=== PATIENT | female | born 1965 | race Caucasian/White ===

== ENCOUNTER 2017-04-25 21:52 | Emergency (ER) | payer BC ==
[~2017-04-25] VITALS: Ht 167.6 cm; Wt 63.5 kg
--- NOTE | 2017-04-25 22:00 | NUR ---
TO BED 08 A 51 YO FEMALE PT [id number] FR HOME FOR SYNCOPAL EPISODE S/P SMOKING WEED, HYPOTENSIVE AT 70-80'S SBP PER EMS. PATIENT IS AAOX4, CARDIAC AND VS MONITORING INITIATED. GOWNED. SAFETY AND COMFORT MEASURES RENDERED. AWAITING FOR ER MD MORE. FAMILY AT BEDSIDE.
--- NOTE | 2017-04-25 22:09 | NUR ---
DR LIANG AT BEDSIDE FOR EVAL.
--- NOTE | 2017-04-25 22:21 | NUR ---
PT HAS LAC #20 IV ACCESS LICENSE DIST[employer]BUTOR . BLOOD SAMPLE COLLECTED SENT TO LAB
--- NOTE | 2017-04-25 22:25 | NUR ---
EKG IN PROGRESS
[2017-04-25 22:26] LABS: BASOPHILS # (AUTO) 0.1 /CMM (0.0-0.2); BASOPHILS % (AUTO) 0.8 % (0.0-2.0); EOSINOPHILS # (AUTO) 0.3 /CMM (0.0-0.7); EOSINOPHILS % (AUTO) 5.1 % (0.0-6.0); HEMATOCRIT 36 % (33-45); HEMOGLOBIN 12.4 g/dL (11.5-14.8); LYMPHOCYTES # (AUTO) 3.5 /CMM (0.8-4.8); LYMPHOCYTES % (AUTO) 51.8 % (20.0-44.0); MEAN CORPUSCULAR HEMOGLOBIN 32 PG (26.0-33.0); MEAN CORPUSCULAR HGB CONC 35 g/dl (31.0-36.0); MEAN CORPUSCULAR VOLUME 93 fL (82-100); MONOCYTES # (AUTO) 0.4 /CMM (0.1-1.30); MONOCYTES % (AUTO) 5.5 % (2.0-12.0); NEUTROPHILS # (AUTO) 2.5 /CMM (1.8-8.9); NEUTROPHILS % (AUTO) 36.8 % (43.0-81.0); PLATELET COUNT (AUTO) 240 /CMM (150-450); RDW COEFFICIENT OF VARIATION 13.4 (11.5-15.0); RED BLOOD CELL COUNT(AUTO) 3.89 MIL/uL (4.0-5.2); WHITE BLOOD COUNT (AUTO) 6.7 K/uL (4.3-11.0)
[2017-04-25] MEDS ORDERED: IV NS 0.9% 1,000 ML BAG IV ONE (22:30)
--- NOTE | 2017-04-25 22:37 | NUR ---
PT TAKEN TO CT VIA ANEL
[2017-04-25 22:39] LABS: CALCIUM, SERUM 8.1 mg/dL (8.5-10.1); CARBON DIOXIDE 26 mmol/L (21-32); CHLORIDE 107 mmol/L (98-107); CREATININE 0.9 mg/dL (0.6-1.3); GLUCOSE 143 mg/dL (74-106); POTASSIUM 3.5 mmol/L (3.5-5.1); SODIUM SERUM 142 mmol/L (136-145); UREA NITROGEN, BLOOD 20 mg/dL (7-18)
[2017-04-25 22:44] LABS: ALANINE AMINOTRANSFERASE 32 U/L (12-78); ALBUMIN 3.5 g/dL (3.4-5.0); ALKALINE PHOSPHATASE 56 U/L (46-116); ASPARTATE AMINOTRANSFERASE 23 U/L (15-37); BILIRUBIN,TOTAL 0.3 mg/dL (0.2-1.0); TOTAL PROTEIN, SERUM 6.2 g/dL (6.4-8.2)
[2017-04-25 22:46] LABS: INR 0.94 (0.87-1.13); TROPONIN I < 0.017 ng/mL (0.00-0.056)
--- NOTE | 2017-04-25 22:49 | NUR ---
PT BACK FROM CT
--- NOTE | 2017-04-25 22:50 | NUR ---
patient came back from ct.
--- NOTE | 2017-04-26 00:17 | NUR ---
IV removed. Catheter intact and site benign. Pressure and 4x4 applied to site. No bleeding noted. Patient discharged to home in stable condition. Written and verbal after care instructions given. Patient verbalizes understanding of instruction. Patient is ambulatory with steady gait, accompanied by family. No further complaints.
[2017-04-26 00:18] VITALS: BP 115/71
== END 2017-04-26 00:18 | disposition home or self-care (01) ==
LOC: ER 21:55
DX: R55 Syncope and collapse (principal); F12.10 Cannabis abuse, uncomplicated; F17.200 Nicotine dependence, unspecified, uncomplicated; Z85.850 Personal history of malignant neoplasm of thyroid; Z98.82 Breast implant status; Z90.710 Acquired absence of both cervix and uterus
CPT/HCPCS: 36415; 70450; 71010; 80048; 80076; 82962; 84484; 84703; 85025; 85730; 93005; 96360; 99285; A4606; J7030 ×2; Z7610